=== PATIENT | male | born 1925 | race Caucasian/White ===

== ENCOUNTER 2016-08-07 17:58 | Inpatient (IN) | payer MEDICARE ==
--- NOTE | ~2016-08-07 | HP ---
History And Physical [address] [place]. [address] NAME: YEN BABCOCK : [birth year] STATUS : ADM Maikel PAT#: [id number] AGE: 89 ADM/REG DATE : 08/07/16 MR#: [id number] REPORT SERV DATE: 08/08/16 DICTATED BY: SHAWANDA TORRES DATE: 08/07/16 REPORT STATUS : Draft TRANSCRIBED BY: MODL DATE: 08/07/16 DATE OF ADMISSION: 08/07/2016 REASON FOR ADMISSION: Acute renal failure and atrial fibrillation with rapid ventricular response. HISTORY OF PRESENT ILLNESS: Mr. Babcock is an 89-year-old male with history of systolic congestive heart failure, atrial fibrillation, status post hospitalization for pneumonia, initially seen at [facility], but left [place], and was admitted to [facility] until one week ago, discharged on 07/30/2016, doing better, having been prescribed Biaxin at discharge. He was doing well at discharge. Lungs were clear. Kidneys were doing satisfactorily. Not feeling so well following discharge. He had some nausea, vomiting x1, poor p.o. intake. His daughter notices confusion, ataxia, he has fallen down twice. Throughout all of this, his urinary output has been normal. There is no change to the urine color or clarity. No fever or chills. Mild headache, but no chest pain or palpitations. No abdominal pain. No visual changes. No shortness of breath. No focal neurological deficits. Has had nocturnal cough, but no wheeze and no significant shortness of breath. He has noted some epistaxis and has had some mild hemoptysis with his phlegm. No loose stool. No weight changes. REVIEW OF SYSTEMS: Remainder of review of systems is negative. PAST MEDICAL HISTORY: As mentioned above. MEDICATIONS: Include Eliquis, aspirin, Lipitor, Biaxin, Cardizem, Nexium, potassium, Viagra p.r.n. He takes an oral chelation agent, which includes several different compounds including EDTA and a mineral supplement as well. ALLERGIES: HE HAS NO DRUG ALLERGIES. FAMILY HISTORY: Negative for kidney disease. SOCIAL HISTORY: The patient has no tobacco, alcohol, or drugs. PHYSICAL EXAMINATION: VITAL SIGNS: On presentation, blood pressure 161/78, pulse 118, respirations 18, afebrile, saturating 94%. GENERAL: Awake, alert, and oriented x3, in no apparent distress. HEENT: Pupils equal, round, and reactive to light. Extraocular movements are intact. No carotid deficits. Moist mucous membranes. Normal oropharynx. NECK: Revealed elevated jugular pulsations at 10 to 12 cm of water. No carotid bruits, lymphadenopathy, or goiter. CARDIAC: Tachycardic, but regular rate and rhythm. No murmurs, gallops, or rubs identified. LUNGS: Clear to auscultation bilaterally. Good excursion. ABDOMEN: Soft and nontender. Bowel sounds normoactive. There was mild tympany. There was no bladder distention. History And Physical [address] [address] NAME: YEN BABCOCK : [birth year] STATUS : ADM Maikel PAT#: [id number] AGE: 89 ADM/REG DATE : 08/07/16 MR#: [id number] REPORT SERV DATE: 08/08/16 DICTATED BY: SHAWANDA TORRES DATE: 08/07/16 REPORT STATUS : Draft TRANSCRIBED BY: DICK DATE: 08/07/16 EXTREMITIES: 2+ edema bilaterally with no cyanosis or clubbing. NEUROLOGIC: 5/5 strength in all four extremities. Normal sensory function x4. SKIN: Warm and dry. PSYCHIATRIC: He is appropriate. LABORATORY EVALUATION: Sodium 137, potassium 5.6, chloride 100, bicarb 31, BUN 86, creatinine 6.6, glucose 95. White count [address], H and H 12/37, platelets 385. EKG revealed atrial fibrillation with rapid ventricular response, actually currently in atrial flutter at the time of presentation. Chest x-ray reviewed by me showed no apparent disease with a tiny left-sided effusion. ASSESSMENT AND PLAN: 1. Atrial fibrillation with rapid ventricular response, heart rate 120. The patient is already on Cardizem. He appears to be compliant. Beta-blockade will be initiated. I am afraid that he is Eliquis toxic as evidenced by the hemoptysis and epistaxis. This and aspirin will both be held. Eliquis may very well be at toxic level in the setting of his renal failure. Cardiology consultation may be necessary regarding cardioversion. He would require intravenous heparinization for any ANJUM. 2. Acute kidney injury. The patient is actually volume overloaded, although only modestly so. He also does not appear to have significant urinary retention. 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 We will obviously discontinue this agent. I have counseled the patient regarding the hazards of long-term EDTA consumption. We will check a fractionation of sodium, CPK, urine eosinophils, and sedimentation rate as part of screening. Nephrology will be consulted and a Cottrell catheter will be placed. Renal ultrasound will be ordered. I am concerned that the patient, at the current level of hyperkalemia and uremia, will not be able to recover fast enough to avoid hemodialysis. In regard to hyperkalemia, however, we can go ahead and give Kayexalate. We will check an ABG. We will alkalinize him to a certain extent with some forced diuresis obviously discontinuing his potassium supplement. We will be following these levels closely. It should be noted that the patient has no peaked T-waves or QRS prolongation, but the dysrhythmia as noted above remains concerning. 3. Ataxia, which may very well be from uremia itself. We will reassess his physical status upon resolution of his uremia. RSM/MODL Shawanda Torres M.D. / [id number] CC: Shawanda Torres M.D. History And Physical [address] [address] NAME: YEN BABCOCK : [birth year] STATUS : ADM Maikel PAT#: [id number] AGE: 89 ADM/REG DATE : 08/07/16 MR#: [id number] REPORT SERV DATE: 08/08/16 DICTATED BY: SHAWANDA TORRES DATE: 08/07/16 REPORT STATUS : Draft TRANSCRIBED BY: MODL DATE: 08/07/16 Warner Cruz D.O. [facility]
--- NOTE | ~2016-08-07 | CN ---
Consultation Report [facility] [address] [place]. [address] NAME: YEN BABCOCK : [birth year] STATUS : ADM Maikel PAT#: [id number] AGE: 89 ADM/REG DATE : 08/07/16 MR#: [id number] REPORT SERV DATE: 08/08/16 DICTATED BY: MICKY ROBLES V. DATE: 08/07/16 REPORT STATUS : Draft TRANSCRIBED BY: MODL DATE: 08/07/16 RENAL CONSULT DATE OF CONSULTATION: 08/07/2016 REASON FOR CONSULTATION: Consultation regarding acute kidney injury. HISTORY OF PRESENT ILLNESS: Mr. Babcock is a pleasant 89-year-old gentleman who has chronic atrial fibrillation who was recently dismissed from a four-day stay at [facility] for pneumonia. He had a dismissal creatinine of 1.16 on the 07/26/2016. He was sent home on a four-day course of Ceftin. He was continued on Eliquis. He was advised to stop the naproxen. He, in the emergency department today, globally not feeling well and complained that he had spit up some blood. He states his appetite has been rather poor for the last few days. He has had some constipation and has taken a fair amount of milk of magnesia. He states he has not had any further naproxen since dismissal from the hospital. PAST MEDICAL HISTORY: 1. Atrial fibrillation. 2. Hypertension. 3. Recent pneumonia. PAST SURGICAL HISTORY: Denies history of cardiac surgery. No abdominal surgery for the patient. ALLERGIES: NO KNOWN DRUG ALLERGIES. HOME MEDICATIONS: Include Eliquis, baby aspirin, atorvastatin, Biaxin, diltiazem, omeprazole, wicc-njs-cntpxic potassium, Viagra as needed, and oral chelation caplets which are presumed to be EDTA. SOCIAL HISTORY: He lives with his girlfriend presently and denies current tobacco use. PHYSICAL EXAMINATION: VITAL SIGNS: Temperature was 97.5, heart rate 120, blood pressure 163/93. GENERAL: An elderly gentleman with no increased work of breathing. HEENT: Pupils equal, round, AND reactive to light. Sclera was anicteric. Oropharynx somewhat dry mucous membranes. NECK: Trachea midline. No thyromegaly. No supraclavicular nodes. No axillary lymph nodes. CHEST: Decreased breath sounds in the bases bilaterally. CARDIOVASCULAR: Irregularly irregular rhythm. No rub. ABDOMEN: Soft, nondistended. Bowel sounds are physiologic. No organomegaly. No lower extremity edema. No clubbing or cyanosis. SKIN: Warm and dry. No rash or lesions. Cottrell catheter in place, draining a fair amount of pale yellow urine. Consultation Report [facility] [address] [place]. [address] NAME: YEN BABCOCK : [birth year] STATUS : ADM Maikel PAT#: [id number] AGE: 89 ADM/REG DATE : 08/07/16 MR#: [id number] REPORT SERV DATE: 08/08/16 DICTATED BY: MICKY ROBLES V. DATE: 08/07/16 REPORT STATUS : Draft TRANSCRIBED BY: DICK DATE: 08/07/16 LABORATORY DATA: BUN and creatinine of 66 and 6.2, magnesium of 4.2, bicarb of 31, and potassium of 5.6. White blood cell count of 10.2, hematocrit of 37%. IMPRESSION: An 89-year-old gentleman with acute kidney injury of unclear etiology at present. The patient does at minimum appear to be somewhat volume depleted. Does not appear to be obstructed after Cottrell catheter placed, but unclear as to how much was actually obtained when Cottrell catheter was placed in his bladder. The patient has also been on what appears to be on EDTA which can cause tubular necrosis in certain situations. The patient also has hypermagnesemia most likely as a consequence of his magnesium ingestion. Rhabdomyolysis be another possibility as he is on statin therapy, however, CPK showed a level of only 155. PLAN: 1. Continue with IV fluids. 2. Obtain urinalysis. 3. Urine electrolytes. 4. Renal ultrasound in the morning. 5. Repeat labs tomorrow morning. Thank you for allowing us to participate in the care of this patient. My partners will follow the patient tomorrow. ALYSON/DICK Micky Robles M.D. / [id number] CC: Kenn Nicolas D.O.
--- NOTE | ~2016-08-07 | DS ---
Discharge Summary [facility] [address] [place]. [address] NAME: YEN BABCOCK : [birth year] STATUS : DIS IN PAT#: [id number] AGE: 89 ADM/REG DATE : 08/09/16 MR#: [id number] REPORT SERV DATE: 08/17/16 DICTATED BY: MAGGY PAYAN DATE: 08/16/16 REPORT STATUS : Draft TRANSCRIBED BY: MODL DATE: 08/16/16 ADMISSION DATE: 08/09/2016 DISCHARGE DATE: 08/16/2016 REASON FOR ADMISSION: Acute kidney injury and atrial fibrillation with RVR. HISTORY OF PRESENT ILLNESS: Please refer to Dr. Hidalgo's history and physical dated 08/08/2016 for complete details regarding the patient's admission. In brief, the patient was admitted to the Hospitalist Service for management of his atrial fibrillation with RVR and acute kidney injury. HOSPITAL COURSE: Several issues were addressed: 1. JUNE. 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 The patient came in with a creatinine of 6.62, and just 2 weeks prior, it had been 1.16. Nephrology was consulted, his nephrotoxic agents have been held, he was given some IV fluids. Nephrology had signed off on 08/14/2016. His creatinine came down, has been trending down every day; it is 2.61 on 08/14/2016. His Cottrell catheter had been removed and he is urinating on his own. He is feeling much better. 2. Atrial fibrillation with RVR. Cardiology was consulted. He was placed on telemetry and went into atrial flutter/atrial fibrillation. Dr. Pearson performed a ANJUM cardioversion. The patient had already been on a heparin drip, he was then switched over to Eliquis, and after the cardioversion, he has been rate controlled and on anticoagulation. 3. Chronic diastolic heart failure, this has been stable. 4. Acute hypoxic respiratory failure, likely getting from volume overload secondary to possibly diastolic heart failure throughout the hospitalization. After his creatinine had been improving approximately on day #5 or #6, he was saturating well with 2 L, I tried to wean him off oxygen; however, his O2 sats markedly had dropped below 88% on room air. He did have some bibasilar crackles. IV fluids were stopped, had several doses of Bumex, and diuresed very well; at which point, his lungs were clear and he was weaned off oxygen. 5. Hematuria, this was likely secondary to traumatic Cottrell and being on a heparin drip; this had resolved. 6. Generalized weakness. Physical Therapy had evaluated the patient, recommended rehab. 7. Hypertension. The patient had some markedly elevated hypertension, we have been up- titrating his blood pressure medications, and that seems to better controlled now. DISPOSITION: The patient will discharged to [facility] for physical therapy in a stable condition. DISCHARGE DIAGNOSES: 1. Acute kidney injury on chronic kidney injury 3 secondary to EDTA poisoning, now resolving. 2. Chronic diastolic heart failure. 3. Acute hypoxic respiratory failure, now resolved. 4. Hematuria. Discharge Summary [address] [address] NAME: YEN BABCOCK : [birth year] STATUS : DIS IN PAT#: [id number] AGE: 89 ADM/REG DATE : 08/09/16 MR#: [id number] REPORT SERV DATE: 08/17/16 DICTATED BY: MAGGY PAYAN DATE: 08/16/16 REPORT STATUS : Draft TRANSCRIBED BY: DICK DATE: 08/16/16 5. Generalized weakness. 6. Hypertension. PROCEDURES: Include consultation with Dr. Fredreick with Nephrology and Dr. Pearson with Cardiology, chest x-ray, ANJUM cardioversion, and renal ultrasound. DISCHARGE MEDICATIONS: Include Eliquis 2.5 mg twice a day, Lipitor 20 mg daily, amiodarone 200 mg twice a day, Lopressor 25 mg twice a day, hydralazine 75 mg every eight hours, Nexium 20 mg p.r.n. reflux, and aspirin [address] is [address] Maggy Payan spending over 30 minutes in discharge planning and coordination of care of Mr. Babcock. SHADY/DICK Maggy Payan MD / [id number] CC: MD Warner Nevarez D.O. [place] A Tombul, D.O. Daniel Black, D.O.
--- NOTE | ~2016-08-07 | CN ---
Consultation Report [facility] [address] [place]. [address] NAME: YEN ALTAMIRANO : [birth year] STATUS : ADM Maikel PAT#: [id number] AGE: 89 ADM/REG DATE : 08/07/16 MR#: [id number] REPORT SERV DATE: 08/09/16 DICTATED BY: CARRIE SIMMONS JR. DATE: 08/09/16 REPORT STATUS : Draft TRANSCRIBED BY: MODLyndsey DATE: 08/09/16 CONSULTATION DATE OF CONSULTATION: CHIEF COMPLAINT: Palpitations. HISTORY OF PRESENT ILLNESS: The patient is an 89-year-old white male, patient of Dr. Carlos Alberto Pearson, scheduled for ANJUM cardioversion, who presented with palpitations, hyperkalemia, atrial flutter with RVR. Creatinine was noted to be elevated. REVIEW OF SYSTEMS: A 10-point review of systems is otherwise unremarkable. He is not able to give an adequate history. Prior renal function is unknown, but original creatinine on presentation was 6.6. He denies any current chest pain, but noted some dyspnea with lower extremity edema on presentation. ALLERGIES: NONE KNOWN. MEDICATIONS: Have included apixaban 2.5 mg b.i.d., aspirin 81 mg daily, Lipitor 20 mg q.h.s., clarithromycin 500 mg p.o. b.i.d., diltiazem CD 360 mg daily, Nexium 20 mg daily, potassium 99 mg two tablets daily, Viagra 50 mg as needed, mineral powder, and oral chelation tablets. PAST MEDICAL HISTORY: Notable for history of atrial fibrillation/flutter, history of hypertension, history of renal insufficiency, history of prior acute on chronic systolic and diastolic heart failure, history of obstructive sleep apnea, prior pneumonia, known coronary artery disease, history of CVA, cataracts, and dyslipidemia. PAST SURGICAL HISTORY: Notable for prior right hand fingertip surgery, history of four- vessel CAB in 2005, back surgery with two rods and six screws, right fourth finger amputated and reattached, right carotid endarterectomy, right renal stent. SOCIAL HISTORY: Notable for absence of current tobacco or ethanol use. FAMILY HISTORY: Notable for heart disease. PHYSICAL EXAMINATION: VITAL SIGNS: Blood pressure is 132/64, pulse is 89 and irregular, respirations 14, the patient is afebrile. HEENT: Unremarkable. NECK: Supple without jugular venous distention. CARDIOVASCULAR SYSTEM: Irregular rate, irregular rhythm. 1/6 systolic murmur. LUNGS: Clear. Consultation Report [facility] [id number] [place]. [address] NAME: YEN ALTAMIRANO : [birth year] STATUS : ADM Maikel PAT#: [id number] AGE: 89 ADM/REG DATE : 08/07/16 MR#: [id number] REPORT SERV DATE: 08/09/16 DICTATED BY: CARRIE SIMMONS JR. DATE: 08/09/16 REPORT STATUS : Draft TRANSCRIBED BY: DIKC DATE: 08/09/16 ABDOMEN: Benign without hepatomegaly. EXTREMITIES: 1+ with trace pedal edema. NEUROLOGIC: He is grossly intact. LABORATORY DATA: Includes EKG notable for atrial flutter with 2:1 conduction and delayed R- wave progression, cannot exclude old anterior [place] and LVH is noted. Sodium 139; potassium 4.1; chloride 99; CO2 of 31; BUN 66; creatinine of 6.62, now 5.66; glucose 101; calcium 8; magnesium 3.2. H and H 11.7 and 34.6, white count 7.6, and platelet count of 335,000. Chest x-ray is notable for small bilateral pleural effusions with bibasilar atelectasis. IMPRESSION: 1. An 89-year-old white male with acute on chronic renal failure with no prior creatinine for comparison. 2. Atrial flutter with rapid ventricular rate. 3. Hyperkalemia. 4. Absence of any evidence of angina. Troponins are negative with less than 0.02. 5. No evidence of overt hyperthyroidism or hypothyroidism. 6. History of known coronary artery disease. 7. Sleep apnea. 8. Atrial fibrillation/flutter, scheduled previously for ANJUM cardioversion. PLANS AND RECOMMENDATIONS: 1. Dr. Pearson will see in a.m. and assess. 2. Anticipate Renal consultation. 3. Agree with current medication regimen and rate control with heparinization. Eliquis noted to be on hold currently. INDIGO/DICK Carrie Simmons Jr., M.D. / [id number] CC: Kenn Nicolas D.O. [place] A T[place]ul, D.O.
[2016-08-07 15:19] LABS: BASOPHILS 0.2 %; BASOPHILS ABSOLUTE 0.02 10/3/uL (0.0-0.16); EOSINOPHILS 0 %; ER CBC TAT 0 Hrs 05 Mins; HEMATOCRIT 37.2 % (40.0-51.0); HEMOGLOBIN 12.3 g/dL (13.6-17.8); IMMATURE GRANULOCYTES 0.2 %; IMMATURE GRANULOCYTES ABSOLUTE 0.02 10/3/uL (0.0-0.11); LYMPHOCYTES ABSOLUTE 0.92 10/3/uL (0.67-4.30); MEAN CORPUS HGB CONC 33.1 g/dL (32.0-36.0); MEAN CORPUSCULAR HEMOGLOB 31.7 pg (26.0-34.0); MEAN CORPUSCULAR VOLUME 95.9 fL (80-100); MEAN PLATELET VOLUME 9.8 fL (9.2-13.0); MONOCYTES 12.1 %; MONOCYTES ABSOLUTE 1.23 10/3/uL (0.21-1.20); NEUTROPHILS 78.5 %; NEUTROPHILS ABSOLUTE 7.99 10/3/uL (2.02-8.40); PLATELET COUNT 385 10/3/uL (150-400); RBC DISTRIBUTION WIDTH 14.9 % (12.0-16.0); RED CELL COUNT 3.88 10/6/uL (4.7-6.1); WHITE BLOOD CELLS 10.2 10/3/uL (4.5-10.5)
[2016-08-07 15:20] LABS: MANUAL DIFF NO %
[2016-08-07 15:28] LABS: INTERNATIONAL NORMAL RATI 1.7 UNITS (-); PARTIAL THROMBO TIME 40.4 SEC (22.5-37.2)
[2016-08-07 15:32] LABS: PROTIME (NOT ORD) 19.9 SEC (12.0-14.5)
[2016-08-07 15:34] LABS: BUN (BLOOD UREA NITROGEN) 66 MG/DL (6-23); CALCIUM, SERUM 8.9 MG/DL (8.5-10.4); CHEST PAIN PROFILE TAT 0 Hrs 20 Mins; CHLORIDE, SERUM 100 MMOL/L (96-112); CO2 (CARBON DIOXIDE) 31 MMOL/L (24-34); CREATININE 6.62 MG/DL (0.70-1.30); GFR AFRICAN AMERICAN 8 ML/MIN (>=60); GFR NON AFRICAN AMERICAN 7 ML/MIN (>=60); GLUCOSE, SERUM 95 MG/DL (60-99); POTASSIUM, SERUM 5.6 MMOL/L (3.5-5.3); SODIUM, SERUM 137 MMOL/L (135-148); TROPONIN I <0.02 NG/ML (<0.05)
[~2016-08-07 17:58] MED LIST: ALEVE220 MG PO; ALTA2.5 PO; ALTA5 PO; ASAB PO; ATROVENTUD INH; BIAXIN5 PO; BYSTOLIC5 MG PO; CARDCD240 PO; CARDCD360 PO; CEFT5 PO; CENTRUM TAB1 TAB PO; CHELATION PO; ELIQUIS 2.5 MG2.5 MG PO; HALF81 PO; LIPITOR20 PO; METHOC750B PO; MINERAL PO; NEXIUM20 M1 PO; NEXIUM40 PO; OTC PAIN PATCH TOP; PERCOCET1 TA2 PO; PLAVIX PO; POTASSIUM GLUCO99 MG PO; PRIN2.5 PO; PRIN20 PO; VIAGRA100 MG PO; VIAGRA50 MG PO; [UNRECOGNIZED DRUG - OTHER] PO
[2016-08-07 21:40] LABS: CPK 155 U/L (0-200)
[2016-08-08 03:40] LABS: ALLENS TEST Pos; BE (BASE EXCESS) 5.3 MEQ/L (0 +/- 2.5); CARBOXYHEMOGLOBIN 0.3 % (0-3); DEVICE NC; HCO3 (ACTUAL BICARBONATE) 29.5 MEQ/L (23-27); INSTRUMENT SERIAL # 35151; METHEMOGLOBIN 0.6 % (0-3); O2 CONTENT 16.1 VOL% (18-24); OPERATOR ID 16503; PCO2 (CO2 TENSION) 42 MMHG (35-45); PO2 (O2 TENSION) 85 MMHG (79-93); SAMPLE Arterial; pH 7.46 (7.37-7.43)
[2016-08-08 05:37] LABS: BASOPHILS 0.2 %; BASOPHILS ABSOLUTE 0.02 10/3/uL (0.0-0.16); EOSINOPHILS 0 %; HEMATOCRIT 35.4 % (40.0-51.0); HEMOGLOBIN 11.8 g/dL (13.6-17.8); IMMATURE GRANULOCYTES 0.4 %; IMMATURE GRANULOCYTES ABSOLUTE 0.03 10/3/uL (0.0-0.11); LYMPHOCYTES 10.1 %; LYMPHOCYTES ABSOLUTE 0.83 10/3/uL (0.67-4.30); MEAN CORPUS HGB CONC 33.3 g/dL (32.0-36.0); MEAN CORPUSCULAR HEMOGLOB 31.6 pg (26.0-34.0); MEAN CORPUSCULAR VOLUME 94.7 fL (80-100); MEAN PLATELET VOLUME 9.6 fL (9.2-13.0); MONOCYTES 12.2 %; NEUTROPHILS 77.1 %; NEUTROPHILS ABSOLUTE 6.34 10/3/uL (2.02-8.40); PLATELET COUNT 367 10/3/uL (150-400); RBC DISTRIBUTION WIDTH 14.5 % (12.0-16.0); RED CELL COUNT 3.74 10/6/uL (4.7-6.1); WHITE BLOOD CELLS 8.2 10/3/uL (4.5-10.5)
[2016-08-08 05:43] LABS: MANUAL DIFF NO %
[2016-08-08 05:49] LABS: T PROTEIN (ELECT)(NOT OR 6.2 G/DL (6.0-8.5)
[2016-08-08 05:50] LABS: A/G RATIO 0.7 (0.7-1.9); ALBUMIN 2.9 G/DL (3.5-5.0); ALKALINE PHOSPHATASE 86 U/L (45-117); BUN (BLOOD UREA NITROGEN) 68 MG/DL (6-23); CALCIUM, SERUM 8.3 MG/DL (8.5-10.4); CHLORIDE, SERUM 101 MMOL/L (96-112); CO2 (CARBON DIOXIDE) 30 MMOL/L (24-34); GLOBULIN 3.9 G/DL (2.5-4.1); GLUCOSE, SERUM 104 MG/DL (60-99); PHOSPHORUS, SERUM 5.5 MG/DL (2.5-4.5); POTASSIUM, SERUM 4.7 MMOL/L (3.5-5.3); SGOT(AST) 49 U/L (5-40); SGPT(ALT) 63 U/L (5-65); SODIUM, SERUM 141 MMOL/L (135-148); TOTAL BILIRUBIN 0.5 MG/DL (0-1.2); TOTAL PROTEIN 6.8 G/DL (6.0-8.5)
[2016-08-08 06:04] LABS: CREATININE 6.12 MG/DL (0.70-1.30); GFR AFRICAN AMERICAN 9 ML/MIN (>=60); GFR NON AFRICAN AMERICAN 7 ML/MIN (>=60)
[2016-08-08 07:13] LABS: CREATININE, URINE 15.1 MG/DL
[2016-08-08 11:25] LABS: ASCORBIC ACID (UR NOT ORDER) NEG (NEG); BILIRUBIN, URINE NEGATIVE (NEG); KETONE, URINE NEGATIVE (NEG); LEUKOCYTE ESTERASE(NOT OR NEG (NEG); WBC (NOT ORDERED) (RFLEX) 6 (0-5)
[2016-08-09 04:12] LABS: BASOPHILS 0.3 %; BASOPHILS ABSOLUTE 0.02 10/3/uL (0.0-0.16); EOSINOPHILS 0.7 %; EOSINOPHILS ABSOLUTE 0.05 10/3/uL (0.0-0.53); HEMATOCRIT 34.6 % (40.0-51.0); HEMOGLOBIN 11.7 g/dL (13.6-17.8); IMMATURE GRANULOCYTES 0.3 %; IMMATURE GRANULOCYTES ABSOLUTE 0.02 10/3/uL (0.0-0.11); LYMPHOCYTES ABSOLUTE 1.14 10/3/uL (0.67-4.30); MANUAL DIFF NO %; MEAN CORPUS HGB CONC 33.8 g/dL (32.0-36.0); MEAN CORPUSCULAR VOLUME 94.5 fL (80-100); MEAN PLATELET VOLUME 9.4 fL (9.2-13.0); MONOCYTES 13.2 %; NEUTROPHILS 70.5 %; NEUTROPHILS ABSOLUTE 5.36 10/3/uL (2.02-8.40); PLATELET COUNT 335 10/3/uL (150-400); RBC DISTRIBUTION WIDTH 14.3 % (12.0-16.0); RED CELL COUNT 3.66 10/6/uL (4.7-6.1); WHITE BLOOD CELLS 7.6 10/3/uL (4.5-10.5)
[2016-08-09 04:26] LABS: ALBUMIN 2.6 G/DL (3.5-5.0); BUN (BLOOD UREA NITROGEN) 67 MG/DL (6-23); CHLORIDE, SERUM 99 MMOL/L (96-112); CO2 (CARBON DIOXIDE) 31 MMOL/L (24-34); COMPLEMENT C3 94 MG/DL (75-161); COMPLEMENT C4 27.4 MG/DL (16-47); CREATININE 5.66 MG/DL (0.70-1.30); GFR AFRICAN AMERICAN 10 ML/MIN (>=60); GFR NON AFRICAN AMERICAN 8 ML/MIN (>=60); GLUCOSE, SERUM 101 MG/DL (60-99); PHOSPHORUS, SERUM 5.7 MG/DL (2.5-4.5); POTASSIUM, SERUM 4.1 MMOL/L (3.5-5.3); SODIUM, SERUM 139 MMOL/L (135-148)
[2016-08-10 05:48] LABS: BASOPHILS 0.3 %; BASOPHILS ABSOLUTE 0.02 10/3/uL (0.0-0.16); EOSINOPHILS 2.9 %; EOSINOPHILS ABSOLUTE 0.21 10/3/uL (0.0-0.53); HEMOGLOBIN 10.4 g/dL (13.6-17.8); IMMATURE GRANULOCYTES 0.3 %; IMMATURE GRANULOCYTES ABSOLUTE 0.02 10/3/uL (0.0-0.11); LYMPHOCYTES 22.4 %; LYMPHOCYTES ABSOLUTE 1.62 10/3/uL (0.67-4.30); MEAN CORPUS HGB CONC 33.4 g/dL (32.0-36.0); MEAN CORPUSCULAR VOLUME 92.6 fL (80-100); MEAN PLATELET VOLUME 9.6 fL (9.2-13.0); MONOCYTES 12.2 %; MONOCYTES ABSOLUTE 0.88 10/3/uL (0.21-1.20); NEUTROPHILS 61.9 %; NEUTROPHILS ABSOLUTE 4.48 10/3/uL (2.02-8.40); PLATELET COUNT 325 10/3/uL (150-400); RBC DISTRIBUTION WIDTH 14.2 % (12.0-16.0); RED CELL COUNT 3.36 10/6/uL (4.7-6.1); WHITE BLOOD CELLS 7.2 10/3/uL (4.5-10.5)
[2016-08-10 05:53] LABS: HEMATOCRIT 31.1 % (40.0-51.0); MANUAL DIFF NO %
[2016-08-10 05:59] LABS: BUN (BLOOD UREA NITROGEN) 66 MG/DL (6-23); CALCIUM, SERUM 7.7 MG/DL (8.5-10.4); CHLORIDE, SERUM 96 MMOL/L (96-112); CO2 (CARBON DIOXIDE) 29 MMOL/L (24-34); GFR AFRICAN AMERICAN 12 ML/MIN (>=60); GFR NON AFRICAN AMERICAN 10 ML/MIN (>=60); GLUCOSE, SERUM 96 MG/DL (60-99); POTASSIUM, SERUM 4.1 MMOL/L (3.5-5.3); SODIUM, SERUM 136 MMOL/L (135-148)
[2016-08-10 06:02] LABS: INTERNATIONAL NORMAL RATI 1.2 UNITS (-)
[2016-08-10 06:05] LABS: PROTIME (NOT ORD) 14.9 SEC (12.0-14.5)
[2016-08-10 07:48] LABS: ANA TITER <1:40 TITER
[2016-08-10 08:53] LABS: WBC (NOT ORDERED) (RFLEX) 0 (0-5)
[2016-08-10 09:41] LABS: A/G 1.18 RATIO (0.9-2.10); ALB RELATIVE % 54.2 % (60.0-89.0); ALBUMIN (ELECTRO) 3.36 GM/DL (3.2-5.5); ALPHA 1 (ELECTRO) 0.32 GM/DL (0.1-0.4); ALPHA 1 RELAT % (NOT ORD) 5.2 % (1.0-4.0); ALPHA 2 (ELECTRO) 0.97 GM/DL (0.5-1.10); ALPHA 2 RELAT % 15.7 % (4.5-26.0); BETA GLOBULIN (SPE) 0.74 GM/DL (0.60-1.30); BETA RELATIVE % 11.9 % (9.0-22.0); GAMMA GLOBULIN (SPE) 0.81 G/DL (0.70-1.60)
[2016-08-10 10:08] LABS: ASCORBIC ACID (UR NOT ORDER) NEG (NEG); BILIRUBIN, URINE NEGATIVE (NEG); KETONE, URINE NEGATIVE (NEG); LEUKOCYTE ESTERASE(NOT OR NEG (NEG)
[2016-08-10 10:28] LABS: HEPATITIS C ANTIBODY NON-REACTIVE (NON-REACT)
[2016-08-10 10:31] LABS: CREATININE, URINE 32.7 MG/DL
[2016-08-10 11:00] LABS: HEP B SUR AB QUANTITATIVE < 3.10 mIU/mL (>=10.0)
[2016-08-10 12:04] LABS: RETICULOCYTE COUNT 1.4 % (0.5-2.5)
[2016-08-10 12:31] LABS: % IRON SAT 16 % (20-50); FERRITIN 250 NG/ML (26-388); IRON BINDING CAPACITY 208 MCG/DL (250-450); IRON, SERUM 34 MCG/DL (35-150)
[2016-08-11 05:22] LABS: BASOPHILS 0.2 %; BASOPHILS ABSOLUTE 0.01 10/3/uL (0.0-0.16); EOSINOPHILS 2.7 %; EOSINOPHILS ABSOLUTE 0.17 10/3/uL (0.0-0.53); HEMOGLOBIN 10.9 g/dL (13.6-17.8); IMMATURE GRANULOCYTES 0.5 %; IMMATURE GRANULOCYTES ABSOLUTE 0.03 10/3/uL (0.0-0.11); LYMPHOCYTES 24.6 %; LYMPHOCYTES ABSOLUTE 1.54 10/3/uL (0.67-4.30); MEAN CORPUS HGB CONC 34.1 g/dL (32.0-36.0); MEAN CORPUSCULAR HEMOGLOB 31.6 pg (26.0-34.0); MEAN CORPUSCULAR VOLUME 92.8 fL (80-100); MEAN PLATELET VOLUME 9.5 fL (9.2-13.0); MONOCYTES 11.2 %; NEUTROPHILS 60.8 %; NEUTROPHILS ABSOLUTE 3.82 10/3/uL (2.02-8.40); PLATELET COUNT 326 10/3/uL (150-400); RBC DISTRIBUTION WIDTH 13.8 % (12.0-16.0); RED CELL COUNT 3.45 10/6/uL (4.7-6.1); WHITE BLOOD CELLS 6.3 10/3/uL (4.5-10.5)
[2016-08-11 05:23] LABS: MANUAL DIFF NO %
[2016-08-11 05:28] LABS: PARTIAL THROMBO TIME 80.4 SEC (22.5-37.2)
[2016-08-11 05:39] LABS: ALBUMIN 2.4 G/DL (3.5-5.0); CALCIUM, SERUM 7.7 MG/DL (8.5-10.4); CHLORIDE, SERUM 98 MMOL/L (96-112); CO2 (CARBON DIOXIDE) 27 MMOL/L (24-34); GLUCOSE, SERUM 95 MG/DL (60-99); POTASSIUM, SERUM 3.5 MMOL/L (3.5-5.3); SODIUM, SERUM 137 MMOL/L (135-148)
[2016-08-11 05:44] LABS: BUN (BLOOD UREA NITROGEN) 51 MG/DL (6-23); CREATININE 3.92 MG/DL (0.70-1.30); GFR AFRICAN AMERICAN 15 ML/MIN (>=60); GFR NON AFRICAN AMERICAN 13 ML/MIN (>=60); PHOSPHORUS, SERUM 4.9 MG/DL (2.5-4.5)
[2016-08-12 04:58] LABS: ALBUMIN 2.4 G/DL (3.5-5.0); BUN (BLOOD UREA NITROGEN) 41 MG/DL (6-23); CALCIUM, SERUM 7.4 MG/DL (8.5-10.4); CHLORIDE, SERUM 104 MMOL/L (96-112); CO2 (CARBON DIOXIDE) 27 MMOL/L (24-34); CREATININE 3.15 MG/DL (0.70-1.30); GFR AFRICAN AMERICAN 19 ML/MIN (>=60); GFR NON AFRICAN AMERICAN 17 ML/MIN (>=60); GLUCOSE, SERUM 104 MG/DL (60-99); PHOSPHORUS, SERUM 3.1 MG/DL (2.5-4.5); SODIUM, SERUM 141 MMOL/L (135-148)
[2016-08-12 10:40] LABS: ANCA <1:20 (()); MYELOPEROXIDASE ANTIBODY <0.2 AI (<1.0); PROTEINASE 3 ANTIBODY <0.2 AI (<1.0)
[2016-08-13 06:50] LABS: BASOPHILS 0.3 %; BASOPHILS ABSOLUTE 0.02 10/3/uL (0.0-0.16); EOSINOPHILS 2.4 %; EOSINOPHILS ABSOLUTE 0.18 10/3/uL (0.0-0.53); HEMATOCRIT 32.4 % (40.0-51.0); HEMOGLOBIN 10.7 g/dL (13.6-17.8); IMMATURE GRANULOCYTES 0.4 %; IMMATURE GRANULOCYTES ABSOLUTE 0.03 10/3/uL (0.0-0.11); LYMPHOCYTES 14.2 %; LYMPHOCYTES ABSOLUTE 1.08 10/3/uL (0.67-4.30); MEAN CORPUSCULAR HEMOGLOB 31.1 pg (26.0-34.0); MEAN CORPUSCULAR VOLUME 94.2 fL (80-100); MEAN PLATELET VOLUME 9.8 fL (9.2-13.0); MONOCYTES ABSOLUTE 0.91 10/3/uL (0.21-1.20); NEUTROPHILS 70.7 %; NEUTROPHILS ABSOLUTE 5.39 10/3/uL (2.02-8.40); PLATELET COUNT 319 10/3/uL (150-400); RBC DISTRIBUTION WIDTH 14.2 % (12.0-16.0); RED CELL COUNT 3.44 10/6/uL (4.7-6.1); WHITE BLOOD CELLS 7.6 10/3/uL (4.5-10.5)
[2016-08-13 06:51] LABS: MANUAL DIFF NO %
[2016-08-13 07:01] LABS: ALBUMIN 2.6 G/DL (3.5-5.0); CALCIUM, SERUM 8.3 MG/DL (8.5-10.4); CHLORIDE, SERUM 104 MMOL/L (96-112); CO2 (CARBON DIOXIDE) 25 MMOL/L (24-34); CREATININE 2.78 MG/DL (0.70-1.30); GFR AFRICAN AMERICAN 23 ML/MIN (>=60); GFR NON AFRICAN AMERICAN 19 ML/MIN (>=60); PHOSPHORUS, SERUM 2.9 MG/DL (2.5-4.5); POTASSIUM, SERUM 3.9 MMOL/L (3.5-5.3); SODIUM, SERUM 142 MMOL/L (135-148)
[2016-08-13 07:02] LABS: BUN (BLOOD UREA NITROGEN) 31 MG/DL (6-23); GLUCOSE, SERUM 73 MG/DL (60-99)
[2016-08-14 04:39] LABS: ALBUMIN 2.8 G/DL (3.5-5.0); BUN (BLOOD UREA NITROGEN) 31 MG/DL (6-23); CALCIUM, SERUM 8.4 MG/DL (8.5-10.4); CHLORIDE, SERUM 101 MMOL/L (96-112); CO2 (CARBON DIOXIDE) 28 MMOL/L (24-34); CREATININE 2.61 MG/DL (0.70-1.30); GFR AFRICAN AMERICAN 24 ML/MIN (>=60); GFR NON AFRICAN AMERICAN 21 ML/MIN (>=60); PHOSPHORUS, SERUM 3.5 MG/DL (2.5-4.5); POTASSIUM, SERUM 3.6 MMOL/L (3.5-5.3); SODIUM, SERUM 142 MMOL/L (135-148)
[2016-08-14 04:40] LABS: GLUCOSE, SERUM 88 MG/DL (60-99)
== END 2016-08-16 18:04 | DRG 917 ==
LOC: ER 17:58 → 7NO 19:04
PROVIDERS: Emergency Medicine; Internal Medicine; Internal Medicine Nephrology; Registered Nurse
PROC: 5A2204Z Restoration of Cardiac Rhythm, Single (ICD-10-PCS; principal; 2016-08-11)
PROC: B246ZZ4 Ultrasonography of Right and Left Heart, Transesophageal (ICD-10-PCS; 2016-08-11)
DX: T50.6X1A Poisoning by antidotes and chelating agents, accidental (unintentional), initial encounter (principal); N17.0 Acute kidney failure with tubular necrosis; J96.01 Acute respiratory failure with hypoxia; R04.2 Hemoptysis; I48.92 Unspecified atrial flutter; I50.32 Chronic diastolic (congestive) heart failure; I13.0 Hypertensive heart and chronic kidney disease with heart failure and stage 1 through stage 4 chronic kidney disease, or unspecified chronic kidney disease; I48.91 Unspecified atrial fibrillation; T45.515A Adverse effect of anticoagulants, initial encounter; R04.0 Epistaxis; R27.0 Ataxia, unspecified; T50.6X5A Adverse effect of antidotes and chelating agents, initial encounter; R31.9 Hematuria, unspecified; G47.33 Obstructive sleep apnea (adult) (pediatric); N18.3 Chronic kidney disease, stage 3 (moderate); E88.09 Other disorders of plasma-protein metabolism, not elsewhere classified; Z79.82 Long term (current) use of aspirin; Z95.1 Presence of aortocoronary bypass graft
CPT/HCPCS: 36600; 71020; 76775; 80048; 80053; 80069; 81001; 82550; 82570; 82728; 82805; 83516; 83516-59; 83540; 83550; 83735; 83880; 84100; 84155; 84165; 84300; 84443; 84484; 85025; 85045; 85610; 85652; 85730; 86039; 86160; 86162; 86255; 86706; 86708; 86803; 89190; 92960; 93005; 93312; 93320; 93325; 96374; 96375; 97116-GP; 97161-GP; 99291; A9270-GY; G8978-CK-GP; G8979-CI-GP; J0360